=== PATIENT | male | born 1950 | race Caucasian/White ===

== ENCOUNTER 2022-07-14 08:03 | Day surgery (SDC) | payer MEDICARE ==
[~2022-07-14] VITALS: Ht 180.3 cm; Wt 81.8 kg
[2022-07-14] MEDS ORDERED: ELIQUIS 2.5 PO (08:26)
[2022-07-14] MEDS ORDERED: KAPSPARGO SPRIN25 MG PO (08:27)
[2022-07-14 08:38] VITALS: BP 142/117; PULSE 80; TEMP 97.8
[2022-07-14 08:47] LABS: HEMATOCRIT 45.2 % (42.0-52.0); HEMOGLOBIN 15.5 g/dl (13.5-18.0); MEAN CELL VOLUME 92 fl (80.0-100.0); MEAN CORPUSCULAR HEMOGLOBIN 32 pg (27-31); MEAN CORPUSCULAR HGB CONC 34 g/dl (33.0-37.0); MEAN PLATELET VOLUME 9.4 fl (7.4-10.4); PLATELET COUNT 247 K/mm3 (130-400); RED BLOOD COUNT 4.92 M/mm3 (4.20-5.60); REDCELL DISTRIBUTION WIDTH-CV 13.7 % (11.5-14.5)
[2022-07-14 09:00] LABS: CALCIUM 10.1 mg/dL (8.4-10.2); CREATININE, serum 1.05 mg/dL (0.72-1.25); POTASSIUM 4.3 mmol/L (3.5-4.5)
[2022-07-14 09:01] LABS: INR 1.1 (0.8-3.0); PROTHROMBIN TIME 12.5 SECONDS (9.7-12.8)
[2022-07-14 09:03] LABS: PARTIAL THROMBOPLASTIN TIME 37.9 SECONDS (26.0-37.0)
[2022-07-14] MEDS ORDERED: ELIQUIS 5MG PO (09:07)
[2022-07-14 09:22] LABS: THYROID STIMULATING HORMONE 3.795 uIU/mL (0.350-4.940)
[2022-07-14 09:45] VITALS: BP 113/89; PULSE 58
[2022-07-14 10:00] VITALS: BP 102/81; PULSE 57
[2022-07-14 10:15] VITALS: BP 111/76; PULSE 55
[2022-07-14 10:20] VITALS: BP 111/76; PULSE 53
[2022-07-14] MEDS ORDERED: BETAPACE 120MG120 MG PO (10:53)
--- NOTE | 2022-07-14 11:13 | NUR ---
PT AMBULATED TO [facility]14, ACCOMPAINED BY AND SON. SCHEDULED FOR A CV. MEDS AND HX REVIEWED WITH PT. IV STARTED, LABS DRAWN, AND CONSENT FORMS SIGNED. AFTER THE PROCEDURE THE PT RECOVERED WITH US. AFTER ABOUT AN HOUR OF RECOVERING. THE PT WAS PROVIDED DISCHARGE INSTRUCTIONS AND EDUCATION, WHICH WAS ALSO DISCUSSED WITH THE PT. NO QUESTIONS OR CONERNS. DISCHARGE PAPERS SIGNED, IV DC'D AND PT EXITED THE UNIT BY WHEELCHAIR TO PERSONAL CAR.
== END 2022-07-14 11:02 | disposition home or self-care (01) ==
LOC: COL.CAR 08:03
PROVIDERS: Internal Medicine Cardiovascular Disease
DX: I48.0 Paroxysmal atrial fibrillation (principal); Z79.01 Long term (current) use of anticoagulants
CPT/HCPCS: J2704; J7120